=== PATIENT | male | born 1935 | race Caucasian/White ===

== ENCOUNTER 2020-10-11 08:12 | Day surgery (SDC) | payer MEDICARE, OTHER ==
[2020-10-11] VITALS (9 sets, daily range): BP systolic 141–159; BP diastolic 70–97
[~2020-10-11] VITALS: Ht 154.9 cm; Wt 134.4 kg
[2020-10-11] MEDS ORDERED: normal saline 1,000 ML IV SCH (08:50)
[2020-10-11] MEDS ORDERED: diphenhydrAMINE 25mg capsule PO PRN (08:50)
[2020-10-11] MEDS ORDERED: VERA120T9 PO (09:03)
[2020-10-11] MEDS ORDERED: HYDR-4069 PO (09:03)
[2020-10-11] MEDS ORDERED: FURO40TA4 PO (09:03)
[2020-10-11] MEDS ORDERED: APIX2.5T PO (09:03)
[2020-10-11] MEDS ORDERED: PRAV80TA3 PO (09:03)
[2020-10-11 09:46] LABS: BASOPHILS # (AUTO) 0.1 X10'3 (0-0.2); BASOPHILS % (AUTO) 1.1 % (0-1); EOSINOPHILS # (AUTO) 0.2 X10'3 (0-0.9); EOSINOPHILS % (AUTO) 2.4 % (0-6); HEMATOCRIT 44.6 % (42.0-52.0); HEMOGLOBIN 14.8 g/dl (14.0-17.9); LYMPHOCYTES # (AUTO) 1.4 X10'3 (1.1-4.8); LYMPHOCYTES % (AUTO) 21.6 % (21-51); MEAN CORPUSCULAR HGB CONC 33.2 g/dL (33.0-36.5); MEAN CORPUSCULAR VOLUME 90.4 FL (78-98); MONOCYTES # (AUTO) 0.7 X10'3 (0-0.9); MONOCYTES % (AUTO) 10.6 % (2-12); NEUTROPHILS # (AUTO) 4.2 X10'3 (1.8-7.7); NEUTROPHILS % (AUTO) 64.3 % (42-75); PLATELET COUNT 110 X10'3 (140-440); RED BLOOD COUNT 4.94 X10'6 (4.70-6.10); RED CELL DISTRIBUTION WIDTH 13.9 % (11.5-14.5); WHITE BLOOD COUNT 6.6 X10'3 (4.5-11.0)
[2020-10-11 09:55] LABS: ALBUMIN 3.2 G/DL (3.4-5.0); ANION GAP 9 (8-16); BLOOD UREA NITROGEN 25 MG/DL (7-18); BUN/CREATININE RATIO 13.3 (5.4-32.0); CALCIUM 8.9 MG/DL (8.5-10.1); CHLORIDE 104 MMOL/L (99-107); CREATININE 1.88 MG/DL (0.60-1.10); GLUCOSE 105 MG/DL (70-104); MAGNESIUM 2.2 MG/DL (1.5-2.4); POTASSIUM 4.9 MMOL/L (3.5-5.1); SODIUM 139 MMOL/L (135-145); TOTAL CARBON DIOXIDE 25.9 MMOL/L (24-32); eGFR 34 ML/MIN
[2020-10-11] MEDS ORDERED: nitroGLYCERIN-Tridil 50MG/D5W 250 ML IV ONE (11:00)
[2020-10-11] MEDS ORDERED: verapamil 2.5 mg/ml inj IV ONE (11:00)
[2020-10-11] MEDS ORDERED: iohexol 350 MG/ML 50ML vial IV ONE (11:01)
[2020-10-11] MEDS ORDERED: midazolam 1 mg/ML 2ml injection ONE ×2 (11:01→11:27)
[2020-10-11] MEDS ORDERED: fentaNYL/PF 50MCG/1 ML 2ML syringe ONE (11:01)
[2020-10-11] MEDS ORDERED: heparin 1,000unit/ml 10ml vial 10 ML ONE (11:01)
[2020-10-11] MEDS ORDERED: iohexol 350MG/ML 100ml bottle IV ONE ×2 (11:01→11:43)
[2020-10-11] MEDS ORDERED: LIDOcaine 1% (10mg/ml)w/preservative injection 20ml MDV ONE (11:01)
[2020-10-11] MEDS ORDERED: acetaminophen 325mg tablet PO PRN (12:20)
[2020-10-11] MEDS ORDERED: HYDROcodone/acetaminophen 10/325mg tab PO PRN (12:20)
[2020-10-11] MEDS ORDERED: proCHLORperazine 10 MG/2 ml inj IV PRN (12:20)
[2020-10-11] MEDS ORDERED: normal saline 1000ml 1,000 ML IV SCH (12:20)
[2020-10-11] MEDS ORDERED: HYDROcodone/acetaminophen 5mg/325mg tablet PO PRN (12:20)
[2020-10-11] MEDS ORDERED: ondansetron/PF 4mg/2ml inj IV PRN (12:20)
== END 2020-10-11 16:00 | disposition home or self-care (01) ==
LOC: SSTAY O 08:12
PROVIDERS: ATTEND Internal Medicine Cardiovascular Disease
DX: R94.39 Abnormal result of other cardiovascular function study (principal); I25.10 Atherosclerotic heart disease of native coronary artery without angina pectoris; I48.19 Other persistent atrial fibrillation; I11.0 Hypertensive heart disease with heart failure; I50.9 Heart failure, unspecified; E78.5 Hyperlipidemia, unspecified; E11.9 Type 2 diabetes mellitus without complications; D69.6 Thrombocytopenia, unspecified; G47.30 Sleep apnea, unspecified; J44.9 Chronic obstructive pulmonary disease, unspecified; N40.0 Benign prostatic hyperplasia without lower urinary tract symptoms; E66.9 Obesity, unspecified; Z79.01 Long term (current) use of anticoagulants; Z79.82 Long term (current) use of aspirin; Z79.899 Other long term (current) drug therapy; Z88.8 Allergy status to other drugs, medicaments and biological substances
CPT/HCPCS: 36415; 80048; 83735; 85025; 85610; 93005; 93458; 99152; C1769; C1894; J1644; J2001; J2250; J3010; J7030; Q0163; Q9967; A4620; J3490

== ENCOUNTER 2023-07-19 10:39 | Day surgery (SDC) | payer MEDICARE, OTHER ==
[2023-07-19] VITALS (15 sets, daily range): BP systolic 106–139; BP diastolic 52–78; PULSE 66–99; RESP 12–29; TEMP 98.1; O2SAT 91–98
[~2023-07-19] VITALS: Ht 177.8 cm; Wt 127.0 kg
[~2023-07-19 10:39] MED LIST: APIX5TAB3 PO; ASPI-1071 PO; FURO40TA4 PO; LOP25T PO; PRAV80TA3 PO
[2023-07-19] MEDS ORDERED: APIX2.5T PO (11:19)
[2023-07-19] MEDS ORDERED: MAGN400O6 PO (11:45)
[2023-07-19] MEDS ORDERED: VITC500T PO (11:45)
[2023-07-19] MEDS ORDERED: OMEP40CA21 PO (11:45)
[2023-07-19] MEDS ORDERED: ACET-2119 PO (11:45)
[2023-07-19] MEDS ORDERED: FERR324T23 PO (11:45)
[2023-07-19] MEDS ORDERED: GABA300C PO (11:45)
[2023-07-19] MEDS ORDERED: AMOX-580 PO (11:45)
[2023-07-19] MEDS ORDERED: ZINC50TA15 PO (11:45)
[2023-07-19] MEDS ORDERED: HYDR28OI2 TOP (11:45)
[2023-07-19] MEDS ORDERED: PSYL575P22 PO (11:45)
[2023-07-19] MEDS ORDERED: LIDO-11 TOP (11:45)
[2023-07-19] MEDS ORDERED: AMIN30LI2 PO (11:45)
[2023-07-19] MEDS ORDERED: LOP12.5T PO (11:45)
[2023-07-19] MEDS ORDERED: NA P133E4 RC (11:45)
[2023-07-19] MEDS ORDERED: CHOL100025 PO (11:45)
[2023-07-19] MEDS ORDERED: FLO0.4C PO (11:45)
[2023-07-19] MEDS ORDERED: LACT1CAP65 PO (11:45)
[2023-07-19] MEDS ORDERED: MIDO5TAB4 PO (11:45)
[2023-07-19] MEDS ORDERED: HYDR-3965 PO (11:45)
[2023-07-19] MEDS ORDERED: BISA10SU60 RC (11:45)
[2023-07-19] MEDS ORDERED: SENN-25 PO (11:45)
[2023-07-19] MEDS: glycopyrrolate 0.2mg/ml inj IV ONE (11:49)
[2023-07-19 12:21] LABS: BASOPHILS # (AUTO) 0.1 X10'3 (0-0.2); BASOPHILS % (AUTO) 0.6 % (0-1); EOSINOPHILS # (AUTO) 0.3 X10'3 (0-0.9); EOSINOPHILS % (AUTO) 3.1 % (0-6); HEMATOCRIT 45.3 % (42.0-52.0); LYMPHOCYTES # (AUTO) 1.9 X10'3 (1.1-4.8); LYMPHOCYTES % (AUTO) 23.3 % (21-51); MEAN CORPUSCULAR HEMOGLOBIN 31.4 PG (27.0-31.0); MEAN PLATELET VOLUME 8.5 FL (7.4-10.4); MONOCYTES # (AUTO) 0.9 X10'3 (0-0.9); MONOCYTES % (AUTO) 10.9 % (2-12); NEUTROPHILS # (AUTO) 5.2 X10'3 (1.8-7.7); NEUTROPHILS % (AUTO) 62.1 % (42-75); PLATELET COUNT 128 X10'3 (140-440); RED BLOOD COUNT 4.77 X10'6 (4.70-6.10); RED CELL DISTRIBUTION WIDTH 13.6 % (11.5-14.5); WHITE BLOOD COUNT 8.3 X10'3 (4.5-11.0)
[2023-07-19 12:29] LABS: APTT 32 SECONDS (22-32); INR 1.1 INR; PROTHROMBIN TIME 11.9 SECONDS (9.0-12.0)
[2023-07-19 12:30] LABS: ALANINE AMINOTRANSFERASE 17 U/L (12-78); ALBUMIN 2.6 G/DL (3.4-5.0); ALBUMIN/GLOBULIN RATIO 0.4 (1.1-1.5); ALKALINE PHOSPHATASE 154 IU/L (46-116); ANION GAP 8 (8-16); ASPARTATE AMINO TRANSFERASE 18 U/L (10-37); BILIRUBIN,TOTAL 0.5 MG/DL (0.1-1.0); BLOOD UREA NITROGEN 27 MG/DL (7-18); BUN/CREATININE RATIO 17.6 (10.0-20.0); CALCIUM 10.2 MG/DL (8.5-10.1); CHLORIDE 102 MMOL/L (99-107); CREATININE 1.53 MG/DL (0.60-1.10); GLUCOSE 102 MG/DL (70-104); MAGNESIUM 1.9 MG/DL (1.5-2.4); POTASSIUM 4.6 MMOL/L (3.5-5.1); SODIUM 139 MMOL/L (135-145); TOTAL PROTEIN 8.7 G/DL (6.4-8.2); eCRCL 36 ML/MIN; eGFR 43 ML/MIN
[2023-07-19] MEDS: MIDAZolam 1mg/ml 10ml vial IV ONE (13:02)
[2023-07-19] MEDS: fentaNYL/PF 50MCG/1 ML 2ML syringe IV ONE (13:03)
== END 2023-07-19 15:15 | disposition home or self-care (01) ==
LOC: SSTAY O 10:39
PROVIDERS: ATTEND Internal Medicine Cardiovascular Disease
DX: I48.19 Other persistent atrial fibrillation (principal); I08.1 Rheumatic disorders of both mitral and tricuspid valves; I25.118 Atherosclerotic heart disease of native coronary artery with other forms of angina pectoris; I11.9 Hypertensive heart disease without heart failure; E78.5 Hyperlipidemia, unspecified; G47.30 Sleep apnea, unspecified; J44.9 Chronic obstructive pulmonary disease, unspecified; Z79.82 Long term (current) use of aspirin; Z79.899 Other long term (current) drug therapy; Z95.1 Presence of aortocoronary bypass graft; Z98.890 Other specified postprocedural states; Z88.8 Allergy status to other drugs, medicaments and biological substances; Z80.9 Family history of malignant neoplasm, unspecified
CPT/HCPCS: 36415; 80053; 83735; 85025; 85610; 85730; 93312; 93325; 94760; J2250; J3010; J3490; J7030; A4620

== ENCOUNTER 2024-02-09 09:53 | Inpatient (IN) | payer MEDICARE, OTHER ==
[~2024-02-09] VITALS: Ht 177.8 cm; Wt 127.3 kg
[~2024-02-09 09:53] MED LIST changes: +ACET-2119 PO; +AMIN30LI2 PO; +APIX2.5T PO; -APIX5TAB3 PO; -ASPI-1071 PO; +BISA10SU60 RC; +CHOL100025 PO; +FERR324T23 PO; +FLO0.4C PO; -FURO40TA4 PO; +GABA300C PO; +HYDR-3965 PO; +LIDO-11 TOP; +LOP12.5T PO; -LOP25T PO; +MAGN400O6 PO; +MIDO5TAB4 PO; +NA P133E4 RC; +OMEP20CA15 PO; +POLY119P2 PO; +PSYL575P22 PO; +SENN-25 PO; +VITC500T PO; +ZINC50TA15 PO
[2024-02-09 11:21] LABS: BASOPHILS # (AUTO) 0.1 X10'3 (0-0.2); EOSINOPHILS # (AUTO) 0.1 X10'3 (0-0.9); HEMATOCRIT 45.9 % (42.0-52.0); HEMOGLOBIN 15.2 g/dl (14.0-17.9); LYMPHOCYTES # (AUTO) 1.5 X10'3 (1.1-4.8); LYMPHOCYTES % (AUTO) 23.4 % (21-51); MEAN CORPUSCULAR HEMOGLOBIN 31.7 PG (27.0-31.0); MEAN CORPUSCULAR HGB CONC 33.1 g/dL (33.0-36.5); MEAN CORPUSCULAR VOLUME 95.6 FL (78-98); MEAN PLATELET VOLUME 7.6 FL (7.4-10.4); MONOCYTES # (AUTO) 0.7 X10'3 (0-0.9); MONOCYTES % (AUTO) 10.8 % (2-12); NEUTROPHILS # (AUTO) 3.9 X10'3 (1.8-7.7); NEUTROPHILS % (AUTO) 62.8 % (42-75); PLATELET COUNT 93 X10'3 (140-440); RED CELL DISTRIBUTION WIDTH 14.8 % (11.5-14.5); WHITE BLOOD COUNT 6.3 X10'3 (4.5-11.0)
[2024-02-09 11:29] LABS: BILIRUBIN,URINE NEGATIVE (Neg); CLARITY,URINE SLIGHTLY CLOUDY (Clear); COLOR,URINE YELLOW (Yellow); GLUCOSE, URINE NEGATIVE (Neg); KETONES,URINE NEGATIVE (Neg); LEUKOCYTE ESTERASE ,URINE MODERATE (Neg); NITRITES, URINE POSITIVE (Neg); OCCULT BLOOD,URINE NEGATIVE (Neg); PROTEIN,URINE TRACE mg/dl (Neg); UROBILINOGEN,URINE 0.2 E.U/dL (0.2-1.0)
[2024-02-09 11:31] LABS: UA COLLECTION TYPE CLN CATCH MIDSTREAM
[2024-02-09 11:33] LABS: ALBUMIN 3.4 G/DL (3.4-5.0); ANION GAP 11 (8-16); BLOOD UREA NITROGEN 55 MG/DL (7-18); BUN/CREATININE RATIO 26.6 (10.0-20.0); CALCIUM 8.9 MG/DL (8.5-10.1); CHLORIDE 104 MMOL/L (99-107); CREATININE 2.07 MG/DL (0.60-1.10); GLUCOSE 103 MG/DL (70-104); POTASSIUM 4.8 MMOL/L (3.5-5.1); SODIUM 140 MMOL/L (135-145); TOTAL CARBON DIOXIDE 25.3 MMOL/L (24-32); eCRCL 26 ML/MIN; eGFR 31 ML/MIN
[2024-02-09 11:35] LABS: BACTERIA,URINE 4+ /HPF (Neg); RBC,URINE 0-2 /HPF (0-2); WBC,URINE 30-50 /HPF (0-4)
[2024-02-09 11:36] LABS: MUCUS STRANDS FEW /LPF (Neg); RENAL CELLS, URINE FEW /HPF; SQUAMOUS EPITHELIAL CELL,UR FEW /LPF (FEW); TRANSITIONAL EPI CELLS,URINE FEW /HPF
[2024-02-09] MEDS: CefTRIAXone 2gm/D5W 50ml BAG 50 ML IV SCH (12:19)
[2024-02-09] MEDS: normal saline 1000ML IV soln IVB ONE (12:19)
[2024-02-09] MEDS ORDERED: FURO40TA4 PO (13:12)
[2024-02-09] MEDS ORDERED: FLO0.4C PO (13:14)
[2024-02-09] MEDS ORDERED: magnesium Cl slow-release 64mg tablet PO PRN (14:20)
[2024-02-09] MEDS ORDERED: ondansetron/PF 4mg/2ml inj IV PRN (14:20)
[2024-02-09] MEDS ORDERED: magnesium hydroxide 30ml (MOM) UD suspension PO PRN (14:20)
[2024-02-09] MEDS ORDERED: magnesium sulf-water 2g/50mL 50 ML IV PRN (14:20)
[2024-02-09] MEDS ORDERED: mag hydrox/Alum hydrox/simeth 30ml oral suspension PO PRN (14:20)
[2024-02-09] MEDS ORDERED: potassium Cl 20 mEq SR tablet PO PRN ×2 (14:20)
[2024-02-09] MEDS ORDERED: potassium Cl 40MEQ/1/2NS 520ml 520 ML IV PRN (14:20)
[2024-02-09] MEDS ORDERED: magnesium sulf-water 4G/100mL 100 ML IV PRN (14:20)
[2024-02-09] MEDS: normal saline 1000ml 1,000 ML IV SCH (14:37)
[2024-02-09 14:41] LABS: MAGNESIUM 2.5 MG/DL (1.5-2.4); PHOSPHORUS 3.5 MG/DL (2.3-4.5)
[2024-02-09 15:11] LABS: BILIRUBIN,URINE NEGATIVE (Neg); CLARITY,URINE CLEAR (Clear); COLOR,URINE YELLOW (Yellow); GLUCOSE, URINE NEGATIVE (Neg); KETONES,URINE NEGATIVE (Neg); LEUKOCYTE ESTERASE ,URINE SMALL (Neg); NITRITES, URINE POSITIVE (Neg); OCCULT BLOOD,URINE NEGATIVE (Neg); PH,URINE 5.5 (4.8-8.0); PROTEIN,URINE NEGATIVE (Neg); UROBILINOGEN,URINE 0.2 E.U/dL (0.2-1.0)
[2024-02-09 15:13] LABS: UA COLLECTION TYPE CLN CATCH MIDSTREAM
[2024-02-09 15:18] LABS: MUCUS STRANDS MODERATE /LPF (Neg); RBC,URINE 0-2 /HPF (0-2); SQUAMOUS EPITHELIAL CELL,UR FEW /LPF (FEW); TRANSITIONAL EPI CELLS,URINE FEW /HPF; WBC,URINE 20-30 /HPF (0-4)
[2024-02-09 15:19] LABS: BACTERIA,URINE 3+ /HPF (Neg); WBC CLUMPS,URINE MODERATE /HPF (NEGATIVE)
[2024-02-09] MEDS: tamsulosin 0.4mg capsule PO SCH (17:07)
[2024-02-09 17:45] VITALS: BP 107/74; PULSE 66; RESP 20; TEMP 97; O2SAT 97
[2024-02-09 18:00] VITALS: BP 107/74; PULSE 66; RESP 20; TEMP 97; O2SAT 97
[2024-02-09] MEDS: acetaminophen 325mg tablet PO PRN (18:42)
[2024-02-09 20:00] VITALS: RESP 20; O2SAT 97
[2024-02-09] MEDS: K and/or MAG REPLACEMENT MC SCH (20:00)
[2024-02-09] MEDS: apixaban 2.5mg tablet PO SCH (20:06)
[2024-02-09] MEDS: metoprolol tartrate 25mg tablet PO SCH (20:06)
[2024-02-09] MEDS ORDERED: morphine 2 MG/ML inj. syringe IV PRN (20:20)
[2024-02-09] MEDS: HYDROcodone/acetaminophen 5mg/325mg tablet PO PRN (21:57)
[2024-02-09 22:00] VITALS: BP 112/52; PULSE 65; RESP 18; TEMP 98.9; O2SAT 97
[2024-02-10] VITALS (8 sets, daily range): BP systolic 126–145; BP diastolic 68–86; PULSE 63–70; RESP 16–20; TEMP 97.8–98.3; O2SAT 97–99
[2024-02-10 06:03] LABS: EOSINOPHILS # (AUTO) 0.2 X10'3 (0-0.9); EOSINOPHILS % (AUTO) 3.7 % (0-6); HEMATOCRIT 43.1 % (42.0-52.0); HEMOGLOBIN 14.1 g/dl (14.0-17.9); LYMPHOCYTES # (AUTO) 1.6 X10'3 (1.1-4.8); LYMPHOCYTES % (AUTO) 31.7 % (21-51); MEAN CORPUSCULAR HEMOGLOBIN 31.1 PG (27.0-31.0); MEAN CORPUSCULAR HGB CONC 32.7 g/dL (33.0-36.5); MEAN CORPUSCULAR VOLUME 95.2 FL (78-98); MEAN PLATELET VOLUME 7.6 FL (7.4-10.4); MONOCYTES # (AUTO) 0.6 X10'3 (0-0.9); NEUTROPHILS # (AUTO) 2.7 X10'3 (1.8-7.7); NEUTROPHILS % (AUTO) 52.6 % (42-75); PLATELET COUNT 85 X10'3 (140-440); RED BLOOD COUNT 4.52 X10'6 (4.70-6.10); RED CELL DISTRIBUTION WIDTH 14.8 % (11.5-14.5)
[2024-02-10 06:18] LABS: ALBUMIN 3.1 G/DL (3.4-5.0); ANION GAP 11 (8-16); BLOOD UREA NITROGEN 49 MG/DL (7-18); BUN/CREATININE RATIO 28.7 (10.0-20.0); CALCIUM 8.9 MG/DL (8.5-10.1); CHLORIDE 108 MMOL/L (99-107); CREATININE 1.71 MG/DL (0.60-1.10); GLUCOSE 101 MG/DL (70-104); POTASSIUM 4.6 MMOL/L (3.5-5.1); SODIUM 142 MMOL/L (135-145); TOTAL CARBON DIOXIDE 23.3 MMOL/L (24-32); eCRCL 31 ML/MIN; eGFR 38 ML/MIN
[2024-02-10] MEDS: atorvastatin 20mg tablet PO SCH (07:36)
[2024-02-10] MEDS: gabapentin 300mg capsule PO SCH (07:38)
[2024-02-10] MEDS: pantoprazole 40mg Tablet.DR PO SCH (07:38)
[2024-02-10] MEDS: furosemide 40mg tablet PO SCH (07:38)
[2024-02-10] MEDS ORDERED: CefTRIAXone/D5W-Rocephin 1gm 50 ML IV SCH (08:00)
[2024-02-10] MEDS: ampicill/sulbac 1.5gm/NS 100ml 100 ML IV SCH (09:18)
[2024-02-10] MEDS: normal saline 1000ml 1,000 ML IV SCH (13:44)
[2024-02-10] MEDS: VANCOMYCIN 2GM/400ML H20 (PEG) 400 ML IV ONE (14:41)
[2024-02-10] MEDS: nystatin 15 GM powder TP SCH (19:44)
[2024-02-11] VITALS (7 sets, daily range): BP systolic 97–156; BP diastolic 49–92; PULSE 46–94; RESP 17–24; TEMP 98–98.4; O2SAT 95–99
[2024-02-11 05:10] LABS: BASOPHILS # (AUTO) 0.1 X10'3 (0-0.2); EOSINOPHILS # (AUTO) 0.2 X10'3 (0-0.9); EOSINOPHILS % (AUTO) 2.7 % (0-6); HEMATOCRIT 43.2 % (42.0-52.0); HEMOGLOBIN 14.1 g/dl (14.0-17.9); LYMPHOCYTES # (AUTO) 1.2 X10'3 (1.1-4.8); LYMPHOCYTES % (AUTO) 17.9 % (21-51); MEAN CORPUSCULAR HGB CONC 32.6 g/dL (33.0-36.5); MEAN CORPUSCULAR VOLUME 95.2 FL (78-98); MEAN PLATELET VOLUME 7.5 FL (7.4-10.4); MONOCYTES # (AUTO) 0.6 X10'3 (0-0.9); MONOCYTES % (AUTO) 9.5 % (2-12); NEUTROPHILS # (AUTO) 4.6 X10'3 (1.8-7.7); NEUTROPHILS % (AUTO) 68.9 % (42-75); PLATELET COUNT 85 X10'3 (140-440); RED BLOOD COUNT 4.54 X10'6 (4.70-6.10); RED CELL DISTRIBUTION WIDTH 14.5 % (11.5-14.5); WHITE BLOOD COUNT 6.7 X10'3 (4.5-11.0)
[2024-02-11 05:20] LABS: ALBUMIN 3.1 G/DL (3.4-5.0); ANION GAP 9 (8-16); BLOOD UREA NITROGEN 46 MG/DL (7-18); BUN/CREATININE RATIO 26.6 (10.0-20.0); CALCIUM 8.7 MG/DL (8.5-10.1); CHLORIDE 107 MMOL/L (99-107); CREATININE 1.73 MG/DL (0.60-1.10); GLUCOSE 117 MG/DL (70-104); POTASSIUM 4.7 MMOL/L (3.5-5.1); SODIUM 140 MMOL/L (135-145); TOTAL CARBON DIOXIDE 24.4 MMOL/L (24-32); eCRCL 31 ML/MIN; eGFR 38 ML/MIN
[2024-02-11] MEDS: VANCOMYCIN 1GM 200ML H20 (PEG) 200 ML IV SCH (15:20)
[2024-02-12] VITALS (8 sets, daily range): BP systolic 128–146; BP diastolic 68–72; PULSE 72–86; RESP 20; TEMP 97.5–98.5; O2SAT 94–98
[2024-02-12 06:18] LABS: BASOPHILS # (AUTO) 0.1 X10'3 (0-0.2); BASOPHILS % (AUTO) 1.1 % (0-1); EOSINOPHILS # (AUTO) 0.2 X10'3 (0-0.9); EOSINOPHILS % (AUTO) 2.9 % (0-6); HEMATOCRIT 42.4 % (42.0-52.0); HEMOGLOBIN 14.3 g/dl (14.0-17.9); LYMPHOCYTES # (AUTO) 1.2 X10'3 (1.1-4.8); LYMPHOCYTES % (AUTO) 15.3 % (21-51); MEAN CORPUSCULAR HEMOGLOBIN 32.4 PG (27.0-31.0); MEAN CORPUSCULAR HGB CONC 33.7 g/dL (33.0-36.5); MEAN PLATELET VOLUME 7.8 FL (7.4-10.4); MONOCYTES # (AUTO) 0.8 X10'3 (0-0.9); MONOCYTES % (AUTO) 10.4 % (2-12); NEUTROPHILS # (AUTO) 5.3 X10'3 (1.8-7.7); NEUTROPHILS % (AUTO) 70.3 % (42-75); PLATELET COUNT 85 X10'3 (140-440); RED BLOOD COUNT 4.41 X10'6 (4.70-6.10); RED CELL DISTRIBUTION WIDTH 14.2 % (11.5-14.5); WHITE BLOOD COUNT 7.6 X10'3 (4.5-11.0)
[2024-02-12 06:22] LABS: ANION GAP 8 (8-16); BLOOD UREA NITROGEN 41 MG/DL (7-18); BUN/CREATININE RATIO 24.6 (10.0-20.0); CALCIUM 8.9 MG/DL (8.5-10.1); CHLORIDE 110 MMOL/L (99-107); CREATININE 1.67 MG/DL (0.60-1.10); GLUCOSE 122 MG/DL (70-104); POTASSIUM 4.8 MMOL/L (3.5-5.1); SODIUM 141 MMOL/L (135-145); TOTAL CARBON DIOXIDE 23.3 MMOL/L (24-32); eCRCL 32 ML/MIN; eGFR 39 ML/MIN
[2024-02-12] MEDS: furosemide 40mg/4ml inj IV ONE (10:17)
[2024-02-12] MEDS: CefTRIAXone 2gm/D5W 50ml BAG 50 ML IV SCH (11:48)
[2024-02-13 05:45] LABS: BASOPHILS # (AUTO) 0.1 X10'3 (0-0.2); BASOPHILS % (AUTO) 0.8 % (0-1); EOSINOPHILS # (AUTO) 0.2 X10'3 (0-0.9); EOSINOPHILS % (AUTO) 2.1 % (0-6); HEMATOCRIT 41.6 % (42.0-52.0); HEMOGLOBIN 13.9 g/dl (14.0-17.9); LYMPHOCYTES # (AUTO) 1.4 X10'3 (1.1-4.8); LYMPHOCYTES % (AUTO) 18.1 % (21-51); MEAN CORPUSCULAR HEMOGLOBIN 31.9 PG (27.0-31.0); MEAN CORPUSCULAR HGB CONC 33.5 g/dL (33.0-36.5); MEAN CORPUSCULAR VOLUME 95.4 FL (78-98); MONOCYTES % (AUTO) 12.7 % (2-12); NEUTROPHILS % (AUTO) 66.3 % (42-75); PLATELET COUNT 101 X10'3 (140-440); RED BLOOD COUNT 4.36 X10'6 (4.70-6.10); RED CELL DISTRIBUTION WIDTH 14.5 % (11.5-14.5); WHITE BLOOD COUNT 7.6 X10'3 (4.5-11.0)
[2024-02-13 06:00] VITALS: BP 136/74; PULSE 81; RESP 18; TEMP 97.2; O2SAT 95
[2024-02-13 06:10] LABS: ANION GAP 9 (8-16); BLOOD UREA NITROGEN 47 MG/DL (7-18); BUN/CREATININE RATIO 26.9 (10.0-20.0); CHLORIDE 107 MMOL/L (99-107); CREATININE 1.75 MG/DL (0.60-1.10); GLUCOSE 113 MG/DL (70-104); POTASSIUM 4.3 MMOL/L (3.5-5.1); SODIUM 140 MMOL/L (135-145); TOTAL CARBON DIOXIDE 24.1 MMOL/L (24-32); eCRCL 31 ML/MIN; eGFR 37 ML/MIN
[2024-02-13 08:00] VITALS: RESP 18
[2024-02-13] MEDS ORDERED: VANCOMYCIN LEVEL IV ONE (14:30)
[2024-02-13 18:30] VITALS: BP 109/66; PULSE 85; RESP 20; TEMP 99.5; O2SAT 97
[2024-02-13] MEDS: colchicine 0.6mg tablet PO SCH (18:57)
[2024-02-13 22:00] VITALS: BP 134/70; PULSE 73; RESP 18; TEMP 98.4; O2SAT 96
[2024-02-14 06:00] VITALS: BP 107/73; PULSE 80; RESP 18; TEMP 97.1; O2SAT 98
[2024-02-14 06:01] LABS: BASOPHILS # (AUTO) 0.1 X10'3 (0-0.2); BASOPHILS % (AUTO) 0.8 % (0-1); EOSINOPHILS # (AUTO) 0.2 X10'3 (0-0.9); EOSINOPHILS % (AUTO) 3.2 % (0-6); HEMATOCRIT 39.9 % (42.0-52.0); HEMOGLOBIN 13.1 g/dl (14.0-17.9); LYMPHOCYTES # (AUTO) 1.4 X10'3 (1.1-4.8); LYMPHOCYTES % (AUTO) 20.6 % (21-51); MEAN CORPUSCULAR HEMOGLOBIN 31.4 PG (27.0-31.0); MEAN CORPUSCULAR HGB CONC 32.9 g/dL (33.0-36.5); MEAN CORPUSCULAR VOLUME 95.5 FL (78-98); MEAN PLATELET VOLUME 7.9 FL (7.4-10.4); MONOCYTES # (AUTO) 0.9 X10'3 (0-0.9); MONOCYTES % (AUTO) 12.7 % (2-12); NEUTROPHILS # (AUTO) 4.4 X10'3 (1.8-7.7); NEUTROPHILS % (AUTO) 62.7 % (42-75); PLATELET COUNT 94 X10'3 (140-440); RED BLOOD COUNT 4.18 X10'6 (4.70-6.10); RED CELL DISTRIBUTION WIDTH 14.1 % (11.5-14.5)
[2024-02-14 06:16] LABS: ALBUMIN 2.7 G/DL (3.4-5.0); ANION GAP 9 (8-16); BLOOD UREA NITROGEN 50 MG/DL (7-18); BUN/CREATININE RATIO 28.1 (10.0-20.0); CALCIUM 8.9 MG/DL (8.5-10.1); CHLORIDE 106 MMOL/L (99-107); CREATININE 1.78 MG/DL (0.60-1.10); GLUCOSE 107 MG/DL (70-104); POTASSIUM 4.5 MMOL/L (3.5-5.1); SODIUM 139 MMOL/L (135-145); TOTAL CARBON DIOXIDE 23.7 MMOL/L (24-32); eCRCL 30 ML/MIN; eGFR 36 ML/MIN
[2024-02-14 08:45] VITALS: RESP 18; O2SAT 97
[2024-02-14 10:00] VITALS: BP 92/50; PULSE 72; RESP 20; TEMP 97.8; O2SAT 97
[2024-02-14] MEDS ORDERED: COLC0.6C3 PO (12:40)
[2024-02-14] MEDS ORDERED: LACT1CAP26 PO (14:10)
[2024-02-14] MEDS ORDERED: AMOX-580 PO (14:10)
[2024-02-14] MEDS ORDERED: lactose-reduced food (Ensure High Protein) 237ml bottle PO SCH (18:00)
[2024-02-15] MEDS ORDERED: colchicine 0.6mg tablet PO SCH (08:00)
== END 2024-02-14 16:05 | disposition home health service (06) | DRG 682 ==
LOC: ER 09:53 → ED HOLD 12:31 → SUR 3N 17:45
PROVIDERS: ADMIT Family Medicine; ATTEND Family Medicine
DX: N17.0 Acute kidney failure with tubular necrosis (principal); G93.41 Metabolic encephalopathy; N39.0 Urinary tract infection, site not specified; Z68.41 Body mass index [BMI] 40.0-44.9, adult; S81.801A Unspecified open wound, right lower leg, initial encounter; B96.20 Unspecified Escherichia coli [E. coli] as the cause of diseases classified elsewhere; E11.22 Type 2 diabetes mellitus with diabetic chronic kidney disease; E78.5 Hyperlipidemia, unspecified; I12.9 Hypertensive chronic kidney disease with stage 1 through stage 4 chronic kidney disease, or unspecified chronic kidney disease; I25.10 Atherosclerotic heart disease of native coronary artery without angina pectoris; I48.91 Unspecified atrial fibrillation; I35.9 Nonrheumatic aortic valve disorder, unspecified; M10.9 Gout, unspecified; N18.30 Chronic kidney disease, stage 3 unspecified; K21.9 Gastro-esophageal reflux disease without esophagitis; I48.0 Paroxysmal atrial fibrillation; G47.33 Obstructive sleep apnea (adult) (pediatric); E66.9 Obesity, unspecified; X58.XXXA Exposure to other specified factors, initial encounter; N40.0 Benign prostatic hyperplasia without lower urinary tract symptoms; Z95.1 Presence of aortocoronary bypass graft; Z95.2 Presence of prosthetic heart valve; Y93.89 Activity, other specified; Y92.89 Other specified places as the place of occurrence of the external cause; Y99.8 Other external cause status
CPT/HCPCS: 36415; 80048; 80202; 81001; 83036; 83605; 83735; 84100; 85025; 87040; 87077; 87081; 87088; 87186; 93306; 93925; 93970; 94760; 97161; 97530; 99285; A6213; A6449; G0378; J0295; J0696; J1940; J3372; J7030; J7040

== ENCOUNTER 2024-08-29 09:33 | Outpatient (CLI) | payer MEDICARE, OTHER ==
[~2024-08-29 09:33] MED LIST changes: +COLC0.6C3 PO; -FLO0.4C PO; +FURO40TA4 PO; +LACT1CAP26 PO; +TAMS-55 PO
--- NOTE | 2024-08-30 17:57 | CARDIOLOGY REPORT ---
APPROVED REPORT EXAM: Comprehensive 2D, Doppler, and color-flow Echocardiogram. 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 STENT X 1 2023 ATRIAL FIBRILLATION Civil Celebrant: Donta YANEZ DO / INTERVENTIONALIST: Smita POWELL MD Previous echo [facility] EF 55-60%; nlLV; modCLVH; nlRV; sevLAE; modRA; AVA3.80; Peak v:1.94; Gr ad: 10/11; mPVL ?not located well; mMR; RVSP 48; modTR; noPE 2D Dimensions RVDd 4.1 cm LVOT Diameter 2.29 (1.8-2.4cm) M-Mode Dimensions Left Atrium(MM) 5.79 (2.5-4.0cm) IVSd 1.14 (0.7-1.1cm) LVDd 5.55 (4.0-5.6cm) Aortic Root 3.69 (2.2-3.7cm) PWd 1.18 (0.7-1.1cm) IVSs 1.57 cm MV EPSS 0.3 (<0.5cm) LVDs 3.68 (2.0-3.8cm) FS (%) 36 % PWs 1.88 cm ESV(Teich) 57.5 ml LVEF(%) 60 (>50%) Aortic Valve AoV Peak Raj. 207.8 cm/s AoV VTI 47.3 cm AO Peak GR. 17.0 mmHg AO Mean GR. 10 mmHg LVOT VTI 39.02 cm LVOT Peak Raj. 160.2 cm/s KARTHIKEYAN (VMAX) 3.16 cm2 KARTHIKEYAN (VTI) 3.38 cm2 Mitral Valve MV PHT 73 ms MVA (PHT) 3.02 cm2 Tricuspid Valve TR P. Velocity 283 cm/s RAP ESTIMATE 10 mmHg TR Peak Gr. 32 mmHg RVSP 42 mmHg LEFT VENTRICLE Upper limit normal LV size with moderate concentric hypertrophy. Overall systolic function is well pr eserved. LVEF is 55-60%. RIGHT VENTRICLE RV is moderately increased in size with preserved systolic function. Elevated right heart pressures a s noted above. ATRIA Left atrium is severely dilated. Right atrium is severely dilated. AORTIC VALVE 23 mm Salazar Manpreet 3 Ultra Resilia bioprosthetic TAVR appears well seated with normal function. Tra ce paravalvular leak present at 9 o'clock in TTE SAX BASE. KARTHIKEYAN is measured at 3.22 cmsq. Peak / mean gradients of 17 / 10 mmHG. Peak velocity is measured at 2.06 m/sec. Measurements are multi sampled av erages due to variable rhythm. MITRAL VALVE Mild MV annular calcification with thickened leaflets without stenosis. Trace regurgitation. TRICUSPID VALVE TV appears structurally normal with moderate eccentric regurgitation. PULMONIC VALVE Normal PV without stenosis, physiologic insufficiency. GREAT VESSELS Aortic root is upper limit normal in size. Ascending aorta is normal in size. PERICARDIUM Normal pericardium. No effusion. Other Information Study Quality: Adequate Conclusion Upper limit normal LV size with moderate concentric hypertrophy. Overall systolic function is well p reserved. LVEF is 55-60%. RV is moderately increased in size with preserved systolic function. Elevated right heart pressures with an RVSP of 42 mmHg. Left atrium is severely dilated. Right atrium is severely dilated. 23 mm Salazar Manpreet 3 Ultra Resilia bioprosthetic TAVR appears well seated with normal function. Tr ariel paravalvular leak present at 9 o'clock in TTE SAX BASE. KARTHIKEYAN is measured at 3.22 cmsq. Peak / m caleb gradients of 17 / 10 mmHG. Peak velocity is measured at 2.06 m/sec. Measurements are multi samp led averages due to variable rhythm. Mild MV annular calcification with thickened leaflets without stenosis. Trace regurgitation. TV appears structurally normal with moderate eccentric regurgitation. Normal pericardium. No effusion.
== END 2024-08-29 23:59 | disposition home or self-care (01) ==
LOC: CARD DIAG 09:33
PROVIDERS: ATTEND Internal Medicine Cardiovascular Disease
DX: Z48.812 Encounter for surgical aftercare following surgery on the circulatory system (principal); Z95.2 Presence of prosthetic heart valve; I48.91 Unspecified atrial fibrillation; Z95.1 Presence of aortocoronary bypass graft; I08.1 Rheumatic disorders of both mitral and tricuspid valves
CPT/HCPCS: 93306